=== PATIENT | female | born 1940 | race Hispanic/Latino ===

== ENCOUNTER 2020-09-09 09:39 | Inpatient (IN) | payer MEDICARE ==
[~2020-09-09] VITALS: Ht 157.5 cm; Wt 53.0 kg
[~2020-09-09 09:39] MED LIST: LISINOPRIL20 MG; NAPROSYN500 MG PO
--- NOTE | 2020-09-09 10:00 | NUR ---
PT ARRIVED TO [facility] ROOM 268 IN STABLE CONDITION VIA WHEELCHAIR ACCOMPAINED BY DAUGHTER IN LAW. PT AMBULATED TO BED WITH STEADY GAIT. PT IS A/O X3 AND MARSHALLESE SPEAKING ONLY, DAUGHTER IN LAW TO ASSIST WITH TRANSLATION. ASSESSMENT AND VITALS COMPLETED. BP 178/61, HR 114, O2 94% ON ROOM AIR. RESPIRATIONS ARE EVEN AND UNLABORED WITH NO DISTRESS NOTED. LUNG SOUNDS ARE CLEAR. HEART RHYTHM NORMAL. BOWEL SOUNDS ARE ACTIVE. PEDAL PULSES WEAK. WOUND NOTED TO RIGHT GREAT TOE. PICTURE OBTAINED. DRESSING REMAINS CDI. #20G RAC STARTED, IV INFUSING PER ORDER, SITE REMAINS HEALTHY AND PATENT. PT COMPLAINS OF 6/10 PAIN IN RIGHT GREAT TOE. NKDA NOTED, ALLERGY BAND AND FALL RISK BAND APPLIED. REUSE TECHNICIAN INFORMED THAT PT IS ON PLAVIX. PT DENIES OF ANY NEEDS AT THIS TIME. DAUGHTER IN LAW REQUEST TO STAY OVER NIGHT. ALL SAFETY PRECAUTIONS ARE IN PLACE WITH CALL LIGHT IN REACH.PT ORIENTED TO ROOM AND CALL LIGHT SYSTEM. WILL CONTINUE TO MONITOR.
--- NOTE | 2020-09-09 10:20 | NUR ---
XRAY AT BEDSIDE
[2020-09-09 10:25] VITALS: BP 178/61
--- NOTE | 2020-09-09 10:31 | NUR ---
DR REYNOSO AT BEDSIDE
[2020-09-09] MEDS ORDERED: FOLIC ACID1 M1 PO (10:49)
[2020-09-09] MEDS ORDERED: PREDNISONE10 MG PO (10:49)
[2020-09-09] MEDS ORDERED: METHOTREXATE S2.5 MG (10:50)
[2020-09-09] MEDS ORDERED: GABAPENTIN300 M2 PO (10:51)
[2020-09-09] MEDS ORDERED: PLAVIX75 MG PO (11:00)
[2020-09-09 11:25] LABS: HEMATOCRIT 40.5 % (37.0-47.0); HEMOGLOBIN 12.9 g/dl (12.0-16.0); IMMATURE GRANULOCYTES 0.2 % (0.0-5.0); MEAN CORPUSCULAR HGB 29.1 pG CALC (26.0-32.0); MEAN CORPUSCULAR HGB CONC 31.9 g/dL CAL (32.0-36.0); NEUT# 3.85 thou/uL (2.00-7.15); RED BLOOD COUNT 4.44 mill/uL (4.20-5.60)
[2020-09-09 11:28] LABS: MEAN CELL VOLUME 91.2 fL CALC (80.0-100.0)
--- NOTE | 2020-09-09 11:30 | NUR ---
DAUGHTER MIR INFORMED THAT SHE WILL NOT BE ABLE TO STAY OVERNIGHT. REQUEST TO TALK TO COATING TECHNICIAN. ALLA WHITTAKER NOTIFIED.
[2020-09-09 11:45] LABS: ALBUMIN 4.2 g/dL (3.2-5.0); ALKALINE PHOSPHATASE 121 u/l (38-126); BUN 15 mg/dL (8-23); BUN/CREATININE RATIO 22 (12-20 (CALC)); CARBON DIOXIDE 26 mmol/l (22-30); CHLORIDE 104 mmol/l (95-108); CREATININE 0.7 mg/dL (0.5-1.0); GFR > 60 ML/MIN (>=60 (CALC)); GFR FOR AFR.AMER. > 60 ML/MIN (>=60 (CALC)); SGOT/AST 31 u/l (9-36); SODIUM 138 mmol/l (137-146); TOTAL PROTEIN 7.6 g/dL (6.3-8.2)
[2020-09-09 11:46] LABS: ANION GAP 13 (6-22 (CALC)); BILIRUBIN, TOTAL 0.5 mg/dL (0.0-1.4); POTASSIUM 4.6 mmol/l (3.5-5.1)
--- NOTE | 2020-09-09 12:40 | NUR ---
DR HUIZAR AT BEDSIDE
[2020-09-09 12:47] VITALS: BP 159/76
--- NOTE | 2020-09-09 12:48 | NUR ---
REASSESSMENT OF BP REUSLTING IN 159/76, HR 75. SCHEDULED BP ADMINISTERED. PT TOLERATED WELL.
--- NOTE | 2020-09-09 14:07 | NUR ---
DR SOW CONSULT COMPLETED.
--- NOTE | 2020-09-09 14:18 | NUR ---
RT AT BEDSIDE FOR EKG.
--- NOTE | 2020-09-09 14:38 | NUR ---
PT AT BEDSIDE
[2020-09-09 14:40] VITALS: BP 146/71
--- NOTE | 2020-09-09 15:31 | NUR ---
PT RESTING IN SEMI FOWLERS POSITION. PT REMAINS A/O X3. RESPIRATIONS ARE EVEN AND UNLABORED WITH NO DSITRESS NOTED. #20G RAC INFUSING WITH IVF PER ORDER, SITE REMAINS HEALTHY AND PATENT. PT COMPLAINS OF 6/10 RIGHT GREAT TOE PAIN. PT MEDICATED PER EMAR. PT DENIES OF ANY ADDITIONAL NEEDS AT THIS TIME. ALL SAFETY PRECAUTIONS ARE IN PLACE WITH CALL LIGHT IN REACH. WILL CONTINUE TO MONITOR.
--- NOTE | 2020-09-09 17:59 | NUR ---
DOUG IN LAW CALLED ASKING FOR UPDATE. PASSCODE PROVIDED.
--- NOTE | 2020-09-09 18:45 | NUR ---
REPORT RECIVED FROM Sharon WATTS RN, PATIENT CARE ASSUMED AT THIS TIME.
[2020-09-09 19:20] VITALS: BP 131/73
--- NOTE | 2020-09-09 19:30 | NUR ---
PATIENT WATCHING TV, RESTING COMFORTABLY IN BED. ASSESMENT COMPLETED AT THIS TIME. CLEAR LUNG SOUNDS, ACTIVE BOWEL SOUNDS AND REGULAR HEART SOUNDS AUSCULATED.SKIN INTACT EXCEPT RIGHT GREAT TOE, WITH A BLACK/RED WOUND BED. PATIENT HAS A 20 GAUGE IN THE RIGHT ARM INFUSING NORMAL SALINE AT 75 ML/HR. CARE PLAN REVIEWED AT THIS TIME. PATIENT AWARE SHE IS NPO AT MIDNIGHT IN PREPARATION FOR SURGERY. PATIENT DENIES ANY PAIN OR ANYFURTHER NEEDS. CALL LIGHT AND BEDISDE TABLE WITHIN REACH.
--- NOTE | 2020-09-09 21:30 | NUR ---
SPOKE WITH DR. HUIZAR REGARDING WITNESSING CONSENT FOR TOMORROWS SX PROCEDURE. PER DR. HUIZAR CONSENT IS ALREADY WITH OR TEAM. CONFIRMS PT TO BE NPO AFTER MIDNIGHT.
--- NOTE | 2020-09-09 21:38 | NUR ---
MEDICATION ADMINISTED PER EMAR. SEE EMAR
[2020-09-10] VITALS (10 sets, daily range): BP systolic 131–203; BP diastolic 76–119
--- NOTE | 2020-09-10 00:10 | NUR ---
PATIENT UP TO THE BATHROOM AT THIS TIME. ASSITED BACK TO BED, CALL LIGHT AND BEDSIDE TABLE WITHIN REACH.
--- NOTE | 2020-09-10 04:15 | NUR ---
PATIENT SLEEPING SOUNDLY AT THIS TIME. CALL LIGHT AND BEDSIDE TABLE WITHIN REACH
[2020-09-10 05:15] LABS: HEMATOCRIT 37.3 % (37.0-47.0); HEMOGLOBIN 11.7 g/dl (12.0-16.0); MEAN CELL VOLUME 91.4 fL CALC (80.0-100.0); MEAN CORPUSCULAR HGB 28.7 pG CALC (26.0-32.0); MEAN CORPUSCULAR HGB CONC 31.4 g/dL CAL (32.0-36.0); RED BLOOD COUNT 4.08 mill/uL (4.20-5.60); RED CELL DISTRI WIDTH 13.6 % (11.5-15.5)
[2020-09-10 05:27] LABS: ANION GAP 10 (6-22 (CALC)); BUN 12 mg/dL (8-23); BUN/CREATININE RATIO 22 (12-20 (CALC)); CARBON DIOXIDE 23 mmol/l (22-30); CHLORIDE 110 mmol/l (95-108); CREATININE 0.6 mg/dL (0.5-1.0); GFR > 60 ML/MIN (>=60 (CALC)); GFR FOR AFR.AMER. > 60 ML/MIN (>=60 (CALC)); POTASSIUM 3.9 mmol/l (3.5-5.1); SODIUM 139 mmol/l (137-146)
--- NOTE | 2020-09-10 07:00 | NUR ---
RECIEVED REPORT FROM ALLA CALDERON
--- NOTE | 2020-09-10 07:50 | NUR ---
PT RESTING IN SEMI FOWLERS POSITION. PT IS A/O X3 AND MALIAN SPEAKING ONLY. ASSESSMENT AND VITALS COMPLETED. BP 166/80, HR 68, O2 100% ON ROOM AIR. REPSIRATIONS ARE EVEN AND UNLABORED WITH NO DISTRESS NOTED. LUNG SOUNDS ARE CLEAR. HEART RHYTHM NORMAL. BOWEL SOUNDS ARE ACTIVE. RIGHT PEDAL PULSE WEAK. WOUND NOTED TO RIGHT GREAT TOE. 1+ EDEMA NOTED TO RLE. PT COMPLAINS OF 4/10 HEAD ACHE. PT INFORMED OF NPO STATUS. MD TO BE NOTIFIED. ALL SAFTEY PRECAUTIONS ARE IN PLACE WITH CALL LIGHT IN REACH. WILL CONTINUE TO MONITOR.
--- NOTE | 2020-09-10 08:20 | NUR ---
DR TORO AT BEDSIDE
--- NOTE | 2020-09-10 09:02 | NUR ---
BP MEDICATION AND TYLENOL ADMINISTEREED FOR PAIN PER SABRINA FALL. PT TOLERATED WELL.
--- NOTE | 2020-09-10 10:30 | NUR ---
DAUGHTER IN LAW AT BEDSIDE TO SEE PT BEFORE SURGERY. PREAPPROVED BY ALLA WILSON
--- NOTE | 2020-09-10 11:14 | NUR ---
Attempted to see patient today. Daughter in-law was in the room and informed the physical therapist that the patient will undergo surgery in an hour. No physical therapy performed.
--- NOTE | 2020-09-10 11:30 | NUR ---
PT RESTING IN SEMI FOWLERS POSITION. DAUGHTER IN LAW AT BEDSIDE. RESPIRATIONS ARE EVEN AND UNLABORED WITH NO DISRTESS NOTED. IV INFUSING WITH IVF PER ORDER, SITE REAINS HEALTHY AND PATENT. PT DENIES OF ANY NEEDS AT THIS TIME. ALL SAFETY PRECAUTIONS ARE IN PLACE WITH CALL LIGHT IN REACH. WILL CONTINUE TO MONITOR.
--- NOTE | 2020-09-10 12:12 | NUR ---
PT TRANSPORTED TO OR VIA STRETCHER IN STABLE CONDITION ACCOMPAINED BY ALLA PUENTES. DAUGHTER IN LAW TO WAIT IN OR NWAITING AREA.
--- NOTE | 2020-09-10 16:03 | NUR ---
PT ARRIVED TO [facility] ROOM 268 VIA STRETCHER IN STABLE CONDITION . PT TRANSFERED TO BED WITH LITTLE DIFFICULT. PT IS A/O X3.BP 138/93, HR 71, O2 95% ON ROOM AIR. RESPIRATIONS ARE EVEN AND UNLABORED WITH NO DISTRESS NOTED. LUNG SOUNDS ARE CLEAR. NONPRODUCTIVE COUGH NOTED. #20G RAC INFUSING WITH IVF PER ORDER, SITE REMAINS HEALTHY AND PATENT. DRESSING TO LLE CDI. PILLOW X2 TO ELEVATE. SCD APPLIED TO RLE. PT DENIES OF ANY PAINS AT THIS TIME. PT DENIES OF ANY ADDITIONAL NEEDS AT THIS TIME. ALL SAFETY PRECAUTIONS ARE IN PLACE WITH CALL LIGHT IN REACH. WILL CONTNUE TO MONITOR.
--- NOTE | 2020-09-10 16:37 | NUR ---
PT COMPLAINS OF 8/10 HEAD ACHE. PT MEDICATED PER EMAR. SCHEDULED MEDICATIONS ADMINISTERD. PT TOLERATED WELL.
--- NOTE | 2020-09-10 17:32 | NUR ---
BP 200S/100S. ALLA LOCKWOOD TO ADMINISTER APRESOLINE.
--- NOTE | 2020-09-10 17:36 | NUR ---
BP REUSLTING IN 200S/100S. NOTFIED. ORDERS FOR APRESOLINE ORDER. WAITING FOR PHARMACY TO VERIFY. PT REMAINS ASYMPTOMATIC. ALL SAFETY PRECAUTIONS ARE IN PLACE. WILL CONTINUE TO MONITOR.
--- NOTE | 2020-09-10 17:59 | NUR ---
CARDINAL CONTACTED ON APRESOLINE ORDER.
--- NOTE | 2020-09-10 18:12 | NUR ---
APPRESOLINE IV TO BE ADMINISTERED BY ALLA LOCKWOOD
--- NOTE | 2020-09-10 18:14 | NUR ---
APRESOLINE IV ADMINISTERED BY THIS MATURITY CHECKER FOR BP 199/119. PT EDUCATED ON ITS USE. PT VERBALIZED UNDERSTANDING. BP TO BE REASSESSED. CALL LIGHT LEFT WITHIN REACH.
--- NOTE | 2020-09-10 18:50 | NUR ---
REPORT RECEIVED FROM Sharon WATTS LPN, PATIENT CARE ASUMMED AT THIS TIME.
--- NOTE | 2020-09-10 19:29 | NUR ---
VITALS REASSESED AFTER APRESOLINE ADMINISTRATION. B/P 135/76 PREVIOUS B/P 199/119. PATIENT RESTING COMFORTALY. RIGHT FOOT BANDAGED POST SURGERY AND RESTING ON TOP OF TWO PILLOWS. ASSESMENT COMPLETED AT THIS TIME. BREATH SOUNDS CLEAR THROUGH ALL [place], NORMAL HEART SOUNDS, ACTIVE BOWEL SOUNDS, PER PATIENT LAST BOWEL MOVEMENT THIS AM. #20 GAUGE IN RIGHT AC INFUSING LACTATED RINGERS SOLUTION AT 75ML/HR. PLAN OF CARE REVIEWED AT THIS TIME. PATIENT EDUCATED ON USE OF CALL LIGH. CALL LIGHT AND BEDSIDE TABLE WITHIN REACH.
--- NOTE | 2020-09-10 20:30 | NUR ---
SCHEDULED AND REQUESTED PRN MEDICATIONS ADMINISTERED. SEE E-MAR.
--- NOTE | 2020-09-11 00:30 | NUR ---
PATIENT RESTING COMFORTABLY IN BED.
[2020-09-11 03:25] VITALS: BP 155/73
--- NOTE | 2020-09-11 04:00 | NUR ---
PATIENT SLEEPING SOUNDLY
[2020-09-11 05:35] LABS: HEMATOCRIT 35.7 % (37.0-47.0); HEMOGLOBIN 11.4 g/dl (12.0-16.0); MEAN CELL VOLUME 91.5 fL CALC (80.0-100.0); MEAN CORPUSCULAR HGB 29.2 pG CALC (26.0-32.0); MEAN CORPUSCULAR HGB CONC 31.9 g/dL CAL (32.0-36.0); RED BLOOD COUNT 3.9 mill/uL (4.20-5.60); RED CELL DISTRI WIDTH 13.8 % (11.5-15.5)
[2020-09-11 05:46] LABS: ANION GAP 9 (6-22 (CALC)); BUN 12 mg/dL (8-23); BUN/CREATININE RATIO 19 (12-20 (CALC)); CARBON DIOXIDE 24 mmol/l (22-30); CHLORIDE 107 mmol/l (95-108); CREATININE 0.6 mg/dL (0.5-1.0); GFR > 60 ML/MIN (>=60 (CALC)); GFR FOR AFR.AMER. > 60 ML/MIN (>=60 (CALC)); MAGNESIUM 1.9 mg/dL (1.6-2.3); POTASSIUM 3.7 mmol/l (3.5-5.1); SODIUM 137 mmol/l (137-146)
--- NOTE | 2020-09-11 07:00 | NUR ---
RECIEVED REPORT FROM ALLA CALDERON
[2020-09-11 07:39] VITALS: BP 164/77
--- NOTE | 2020-09-11 07:39 | NUR ---
PT RESTING IN SEMI FOWLERS POSITION. PT IS A/O X3. ASSESSMENT AND VITALS COMPLETED. BP 164/77, HR 79, O2 96% ON ROOM AIR. RESPIRATIONS ARE EVEN AND UNLABORED WITH NO DISTRESS NOTED. LUNG SOUNDS ARE CLEAR. HEART RHYTHM NORMAL. BOWEL SOUNDS ARE ACTIVE. LEFT PEDAL PULSES STRONG. DRESSING TO RLE CDI, ELEVATED WITH PILLOW X2. SKIN INTACT. PT COMPLAINS OF 6/10 PAIN IN RLE, PT TO BE MEDICATED PER EMAR.PURE WHICK IN PLACE. PT DENIES OF ANY PAINS OR DISCOMFORTS AT THIS TIME. ALL SAFTEY PRECAUTIONS ARE IN PLACE WITH CALL LIGHT IN REACH. WILL CONTINUE TO MONITOR.
--- NOTE | 2020-09-11 10:07 | NUR ---
DR REYES AT BEDSIDE
[2020-09-11 10:54] VITALS: BP 154/83
--- NOTE | 2020-09-11 11:35 | NUR ---
PANICCO AT BEDSIDE
--- NOTE | 2020-09-11 11:36 | NUR ---
PT RESTING IN SEMI FOWLES POSITION. RESPIRATIONSARE EVEN AND UNLABORED WITH NO DISTRESS NOTED ON ROOM AIR. #20G RAC INFUSING WITH IVF PER ORDER, SITE REMAINS HEALTHY AND PATENT. PT DENIES OF ANY PAINS OR DISCOMFORTS AT THIS TIME. ALL SAFETY PRECAUTIONS ARE IN PLACE WITH CALL LIGHT IN REACH. WILL CONTINUE TO MONITOR.
[2020-09-11] MEDS ORDERED: TRAMADOL HCL50 MG PO (11:42)
--- NOTE | 2020-09-11 12:54 | NUR ---
PT AND ADUGHTER IN LAW EDUCTAED ON DC INSTRUCTIONS AND TRAMADOL. BOTH VERBLAIZED UNDERSTANDING. IV REMOVED WITH CATHATER STILL INTACT. PT ASSISTED WITH GETTING DRESSED. WILL CONTINUE TO MONITOR.
--- NOTE | 2020-09-11 13:02 | NUR ---
Discharge instructions given. Patient verbalizes understanding of same. Discharged in stable condition via Wheelchair to Home with staff. All belongings sent with pt. PT DC HOME IN STABLE CONDITION ACCPOMPAINED BY DAUGHTER IN LAW AND STAFF VIA WHEELCHAIR WITH ALL DC INSTRUCTIONS AND NEW MEDICATIONS.
== END 2020-09-11 13:02 | disposition home health service (06) | DRG 504 ==
LOC: MS2 09:39
PROVIDERS: ADMIT Nurse Practitioner; ATTEND Internal Medicine
PROC: 0Y6P0Z0 Detachment at Right 1st Toe, Complete, Open Approach (ICD-10-PCS; principal; 2020-09-10)
DX: M86.671 Other chronic osteomyelitis, right ankle and foot (principal); L97.518 Non-pressure chronic ulcer of other part of right foot with other specified severity; I70.235 Atherosclerosis of native arteries of right leg with ulceration of other part of foot; I10 Essential (primary) hypertension; M06.9 Rheumatoid arthritis, unspecified; M19.019 Primary osteoarthritis, unspecified shoulder; G62.9 Polyneuropathy, unspecified; Z95.820 Peripheral vascular angioplasty status with implants and grafts; Z20.822 Contact with and (suspected) exposure to COVID-19
CPT/HCPCS: J1650; Q3014